=== PATIENT | female | born 1985 | race Hispanic/Latino ===

== ENCOUNTER → 2023-07-29 | Outpatient (CLI) | payer MEDICAID | END | disposition home or self-care (01) | LOC: LAB 15:19 | PROVIDERS: ATTEND Obstetrics & Gynecology | DX: Z32.00 Encounter for pregnancy test, result unknown (principal) | CPT/HCPCS: 36415; 84702 ==

== ENCOUNTER → 2023-07-30 | Outpatient (CLI) | payer MEDICAID ==
[~2023-07-30] MED LIST: IOHEXOL-350 50ML VIAL IV ONE
== END | disposition home or self-care (01) ==
LOC: RAH 09:28
PROVIDERS: ATTEND Obstetrics & Gynecology
DX: Z31.89 Encounter for other procreative management (principal); N70.11 Chronic salpingitis; N97.1 Female infertility of tubal origin
CPT/HCPCS: 74740; 58340; Q9967